=== PATIENT | female | born 1970 | race Two or more races ===

== ENCOUNTER 2018-09-04 13:46 | Inpatient (IN) | payer OTHER ==
[~2018-09-04] VITALS: Ht 165.1 cm; Wt 52.3 kg
[2018-09-04] MEDS ORDERED: SODIUM CHLORIDE 0.9% 1,000 ML IV ONE (15:30)
[2018-09-04 16:30] LABS: BASOPHILS % (AUTO) 0.6 % (0.0-2.0); EOSINOPHILS % (AUTO) 2.8 % (1.0-6.0); HEMATOCRIT 38.5 % (36-46); HEMOGLOBIN 12.5 g/dL (12.0-16.0); LYMPHOCYTES # (AUTO) 1.6 K/uL (1.0-4.8); LYMPHOCYTES % (AUTO) 23.9 % (22.0-44.0); MEAN CORPUSCULAR HEMOGLOBIN 29.7 pg (26.0-34.0); MEAN CORPUSCULAR HGB CONC 32.5 G/dL (31.0-37.0); MEAN CORPUSCULAR VOLUME 92 fL (80-100); MONOCYTES # (AUTO) 0.3 K/uL (0.1-1.0); MONOCYTES % (AUTO) 4.8 % (2.0-9.0); NEUTROPHILS # (AUTO) 4.6 K/uL (1.8-7.7); NEUTROPHILS % (AUTO) 67.9 % (40.0-70.0); PLATELET COUNT (AUTO) 268 K/uL (150-450); RED CELL DISTRIBUTION WIDTH 13.9 % (11.5-14.5)
[2018-09-04 16:46] LABS: ANION GAP 6 mmol/L (8-16); CALCIUM, TOTAL 8.8 mg/dL (8.8-10.5); CARBON DIOXIDE 27 mmol/L (22-29); CHLORIDE 105 mmol/L (98-107); CREATININE 0.77 mg/dL (0.60-1.30); GLOMERULAR FILTR. RATE CALC > 60 mL/min (>60); GLUCOSE,RANDOM 92 mg/dL (70-110); POTASSIUM 3.8 mmol/L (3.5-5.1); SODIUM SERUM 138 mmol/L (136-145); UREA NITROGEN, BLOOD 16 mg/dL (7-18)
[2018-09-04 16:52] LABS: ALANINE AMINOTRANSFERASE 40 U/L (12-78); ALBUMIN 3.1 g/dL (3.4-5.0); ALKALINE PHOSPHATASE 76 U/L (46-116); ASPARTATE AMINOTRANSFERASE 29 U/L (15-37); BILIRUBIN,TOTAL 0.4 mg/dL (0.1-1.0); TOTAL PROTEIN, SERUM 7.1 g/dL (6.4-8.2)
[2018-09-04] MEDS ORDERED: ONDANSETRON HCL 4 MG/2 ML VIAL IVP PRN (17:15)
[2018-09-04] MEDS ORDERED: 0.9% SODIUM CHLORIDE 10 ML SYRINGE IVP PRN (17:15)
[2018-09-04] MEDS ORDERED: ACETAMINOPHEN 325 MG TABLET PO PRN (17:15)
[2018-09-04] MEDS ORDERED: ONDANSETRON HCL 4 MG/2 ML VIAL IVP ONE (17:15)
[2018-09-04 18:01] LABS: AMPHET/METH SCREEN,URINE POSITIVE (NEGATIVE); BARBITURATE SCREEN, URINE NEGATIVE (NEGATIVE); BENZODIAZEPINES SCREEN,URINE NEGATIVE (NEGATIVE); CANNABINOID SCREEN,URINE NEGATIVE (NEGATIVE); COCAINE SCREEN,URINE NEGATIVE (NEGATIVE); METHADONE SCREEN, URINE NEGATIVE (NEGATIVE); OPIATE SCREEN,URINE POSITIVE (NEGATIVE)
[2018-09-04 18:05] LABS: PHENCYCLIDINE SCREEN,URINE NEGATIVE (NEGATIVE)
[2018-09-04] MEDS ORDERED: MAG HYDROX/AL HYDROX/SIMETH ES 30 ML SUSPENSION UDCUP PO PRN (18:30)
[2018-09-04] MEDS ORDERED: CYANOCOBALAMIN 1,000 MCG/ML VIAL IM ONE (18:30)
[2018-09-04] MEDS ORDERED: LOPERAMIDE HCL 2 MG CAPSULE PO PRN (18:30)
[2018-09-04] MEDS ORDERED: ChlordiazePOXIDE HCL 25 MG CAPSULE PO PRN (18:30)
[2018-09-04] MEDS ORDERED: GuaiFENesin/D-METHORPHAN [SUGAR-FREE] 200-20MG/10 ML SYRUP UDCUP PO PRN (18:30)
[2018-09-04] MEDS ORDERED: MAGNESIUM HYDROXIDE SUSPENSION 30 ML UDCUP PO PRN (18:30)
[2018-09-04] MEDS ORDERED: HydrOXYzine PAMOATE 50 MG CAPSULE PO PRN ×2 (18:30)
[2018-09-04] MEDS ORDERED: IPRATROPIUM BROMIDE 0.5 MG/2.5 ML NEB SOLUTION NEB PRN (18:30)
[2018-09-04] MEDS ORDERED: ALBUTEROL SULFATE 2.5 MG/0.5 ML NEB SOLUTION NEB PRN (18:30)
[2018-09-04] MEDS ORDERED: BISACODYL 10 MG RECTAL RECTAL SUPPOSITORY PR PRN (18:30)
[2018-09-04 19:00] VITALS: BP 126/66
[2018-09-04 19:06] VITALS: BP 126/66
[2018-09-04 19:42] VITALS: BP 128/57
[2018-09-04 20:00] VITALS: BP 128/57
[2018-09-04] MEDS: DOCUSATE SODIUM 100 MG CAPSULE PO SCH (21:00)
[2018-09-04] MEDS: SODIUM CHLORIDE 0.9% 1,000 ML IV SCH (21:32)
[2018-09-04] MEDS: CEPHALEXIN MONOHYDRATE 500 MG CAPSULE PO SCH (21:33)
[2018-09-04] MEDS: CloNIDine HCL 0.1 MG TABLET PO SCH (21:33)
[2018-09-04] MEDS: THIAMINE HCL 100 MG TABLET PO SCH (21:33)
[2018-09-04 23:00] VITALS: BP 130/88
[2018-09-04 23:20] VITALS: BP 130/88
[2018-09-04] MEDS: HEPARIN SODIUM,PORCINE 5,000 UNITS/ML VIAL SQ SCH (23:28)
[2018-09-05 04:34] VITALS: BP 132/78
[2018-09-05] MEDS: CloNIDine HCL 0.1 MG TABLET PO SCH ×4 (06:09→23:49)
[2018-09-05 06:38] LABS: BASOPHILS % (AUTO) 0.6 % (0.0-2.0); EOSINOPHILS % (AUTO) 5.6 % (1.0-6.0); HEMATOCRIT 38.1 % (36-46); HEMOGLOBIN 12.3 g/dL (12.0-16.0); LYMPHOCYTES # (AUTO) 1.6 K/uL (1.0-4.8); LYMPHOCYTES % (AUTO) 29.3 % (22.0-44.0); MEAN CORPUSCULAR HEMOGLOBIN 29.6 pg (26.0-34.0); MEAN CORPUSCULAR HGB CONC 32.3 G/dL (31.0-37.0); MEAN CORPUSCULAR VOLUME 92 fL (80-100); MONOCYTES # (AUTO) 0.3 K/uL (0.1-1.0); MONOCYTES % (AUTO) 5.6 % (2.0-9.0); NEUTROPHILS # (AUTO) 3.1 K/uL (1.8-7.7); NEUTROPHILS % (AUTO) 58.9 % (40.0-70.0); PLATELET COUNT (AUTO) 261 K/uL (150-450); RED BLOOD CELL COUNT(AUTO) 4.15 MIL/uL (4.00-5.20); RED CELL DISTRIBUTION WIDTH 13.8 % (11.5-14.5)
[2018-09-05 07:00] LABS: ANION GAP 10 mmol/L (8-16); CARBON DIOXIDE 25 mmol/L (22-29); CHLORIDE 104 mmol/L (98-107); CREATININE 0.77 mg/dL (0.60-1.30); GLUCOSE,RANDOM 94 mg/dL (70-110); POTASSIUM 3.4 mmol/L (3.5-5.1); SODIUM SERUM 139 mmol/L (136-145); UREA NITROGEN, BLOOD 13 mg/dL (7-18)
[2018-09-05] MEDS ORDERED: ChlordiazePOXIDE HCL 25 MG CAPSULE PO PRN (07:00)
[2018-09-05 07:01] LABS: ALANINE AMINOTRANSFERASE 32 U/L (12-78); ALBUMIN 2.7 g/dL (3.4-5.0); ALKALINE PHOSPHATASE 71 U/L (46-116); ASPARTATE AMINOTRANSFERASE 20 U/L (15-37); BILIRUBIN,TOTAL 0.4 mg/dL (0.1-1.0); CALCIUM, TOTAL 8.7 mg/dL (8.8-10.5); GLOMERULAR FILTR. RATE CALC > 60 mL/min (>60); TOTAL PROTEIN, SERUM 6.5 g/dL (6.4-8.2)
[2018-09-05 07:15] VITALS: BP 116/69
[2018-09-05] MEDS: RALTEGRAVIR 400 MG TABLET PO SCH ×2 (08:39→20:24)
[2018-09-05] MEDS: EMTRICITABINE/TENOFOVIR 200-300 MG TABLET PO SCH (08:39)
[2018-09-05] MEDS: THIAMINE HCL 100 MG TABLET PO SCH ×2 (08:40→20:25)
[2018-09-05] MEDS: CEPHALEXIN MONOHYDRATE 500 MG CAPSULE PO SCH ×4 (08:40→20:25)
[2018-09-05] MEDS: MULTIVITAMINS WITH MINERALS, THERAPEUTIC TABLET PO SCH (08:41)
[2018-09-05] MEDS: FOLIC ACID 1 MG TABLET PO SCH (08:41)
[2018-09-05] MEDS: ACETAMINOPHEN 325 MG TABLET PO PRN ×2 (08:41→20:28)
[2018-09-05] MEDS: ChlordiazePOXIDE HCL 25 MG CAPSULE PO SCH ×4 (08:42→20:25)
[2018-09-05] MEDS: HEPARIN SODIUM,PORCINE 5,000 UNITS/ML VIAL SQ SCH ×3 (08:42→23:47)
[2018-09-05] MEDS: DOCUSATE SODIUM 100 MG CAPSULE PO SCH ×3 (08:42→21:27)
[2018-09-05 11:20] VITALS: BP 134/76
[2018-09-05] MEDS: SODIUM CHLORIDE 0.9% 1,000 ML IV SCH (12:08)
[2018-09-05 15:10] VITALS: BP 132/87
[2018-09-05] MEDS ORDERED: POTASSIUM CHLORIDE 20 MEQ ER TABLET PO ONE (17:15)
[2018-09-05 19:57] VITALS: BP 110/63
[2018-09-05 23:19] VITALS: BP 144/89
[2018-09-06] VITALS (9 sets, daily range): BP systolic 130–185; BP diastolic 79–109
[2018-09-06] MEDS ORDERED: SODIUM CHLORIDE 0.9% 1,000 ML IV ONE (01:18)
[2018-09-06] MEDS: CloNIDine HCL 0.1 MG TABLET PO SCH ×4 (05:44→23:12)
[2018-09-06] MEDS: ONDANSETRON HCL 4 MG/2 ML VIAL IVP PRN ×2 (07:41→14:11)
[2018-09-06] MEDS: CloNIDine HCL 0.1 MG TABLET PO PRN ×2 (07:41→15:35)
[2018-09-06] MEDS: DOCUSATE SODIUM 100 MG CAPSULE PO SCH ×2 (09:00→19:37)
[2018-09-06] MEDS: THIAMINE HCL 100 MG TABLET PO SCH ×2 (09:17→19:38)
[2018-09-06] MEDS: MULTIVITAMINS WITH MINERALS, THERAPEUTIC TABLET PO SCH (09:17)
[2018-09-06] MEDS: CEPHALEXIN MONOHYDRATE 500 MG CAPSULE PO SCH ×4 (09:17→19:38)
[2018-09-06] MEDS: HEPARIN SODIUM,PORCINE 5,000 UNITS/ML VIAL SQ SCH ×3 (09:18→23:11)
[2018-09-06] MEDS: ChlordiazePOXIDE HCL 25 MG CAPSULE PO SCH ×4 (09:18→19:40)
[2018-09-06] MEDS: RALTEGRAVIR 400 MG TABLET PO SCH ×2 (09:19→19:38)
[2018-09-06] MEDS: EMTRICITABINE/TENOFOVIR 200-300 MG TABLET PO SCH (09:19)
[2018-09-06] MEDS: FOLIC ACID 1 MG TABLET PO SCH (09:19)
[2018-09-06] MEDS: SODIUM CHLORIDE 0.9% 1,000 ML IV SCH (15:33)
[2018-09-06] MEDS: DICYCLOMINE HCL 20 MG TABLET PO SCH ×2 (16:46→23:12)
[2018-09-07 05:00] VITALS: BP 184/102
[2018-09-07] MEDS: CloNIDine HCL 0.1 MG TABLET PO SCH ×2 (05:11→11:16)
[2018-09-07] MEDS: IBUPROFEN 600 MG TABLET PO PRN ×2 (05:11→20:18)
[2018-09-07] MEDS: SODIUM CHLORIDE 0.9% 1,000 ML IV SCH ×2 (05:13→14:17)
[2018-09-07] MEDS: DICYCLOMINE HCL 20 MG TABLET PO SCH ×4 (05:14→23:29)
[2018-09-07] MEDS ORDERED: ChlordiazePOXIDE HCL 10 MG CAPSULE PO PRN (07:00)
[2018-09-07 07:41] VITALS: BP 167/95
[2018-09-07] MEDS: EMTRICITABINE/TENOFOVIR 200-300 MG TABLET PO SCH (08:28)
[2018-09-07] MEDS: DOCUSATE SODIUM 100 MG CAPSULE PO SCH ×2 (08:29→20:12)
[2018-09-07] MEDS: ChlordiazePOXIDE HCL 10 MG CAPSULE PO SCH ×4 (08:29→20:12)
[2018-09-07] MEDS: MULTIVITAMINS WITH MINERALS, THERAPEUTIC TABLET PO SCH (08:29)
[2018-09-07] MEDS: HEPARIN SODIUM,PORCINE 5,000 UNITS/ML VIAL SQ SCH ×3 (08:29→23:30)
[2018-09-07] MEDS: RALTEGRAVIR 400 MG TABLET PO SCH ×2 (08:29→20:13)
[2018-09-07] MEDS: CEPHALEXIN MONOHYDRATE 500 MG CAPSULE PO SCH ×4 (08:30→20:12)
[2018-09-07] MEDS: FOLIC ACID 1 MG TABLET PO SCH (08:31)
[2018-09-07] MEDS: ESCITALOPRAM OXALATE 10 MG TABLET PO SCH (11:15)
[2018-09-07] MEDS: THIAMINE HCL 100 MG TABLET PO SCH ×2 (11:18→20:12)
[2018-09-07] MEDS ORDERED: CloNIDine HCL 0.1 MG TABLET PO PRN (11:30)
[2018-09-07 11:32] VITALS: BP 136/74
[2018-09-07 15:54] VITALS: BP 101/58
[2018-09-07 20:13] VITALS: BP 121/69
[2018-09-07 23:21] VITALS: BP 180/106
[2018-09-08] VITALS (7 sets, daily range): BP systolic 99–140; BP diastolic 64–86
[2018-09-08] MEDS: IBUPROFEN 600 MG TABLET PO PRN ×2 (06:41→16:43)
[2018-09-08] MEDS: DICYCLOMINE HCL 20 MG TABLET PO SCH ×4 (06:41→23:19)
[2018-09-08] MEDS ORDERED: ChlordiazePOXIDE HCL 10 MG CAPSULE PO PRN (07:00)
[2018-09-08] MEDS: HEPARIN SODIUM,PORCINE 5,000 UNITS/ML VIAL SQ SCH ×3 (08:22→23:19)
[2018-09-08] MEDS: ESCITALOPRAM OXALATE 10 MG TABLET PO SCH (08:22)
[2018-09-08] MEDS: DOCUSATE SODIUM 100 MG CAPSULE PO SCH ×3 (08:22→20:07)
[2018-09-08] MEDS: THIAMINE HCL 100 MG TABLET PO SCH ×2 (08:23→20:01)
[2018-09-08] MEDS: MULTIVITAMINS WITH MINERALS, THERAPEUTIC TABLET PO SCH (08:23)
[2018-09-08] MEDS: EMTRICITABINE/TENOFOVIR 200-300 MG TABLET PO SCH (08:23)
[2018-09-08] MEDS: CEPHALEXIN MONOHYDRATE 500 MG CAPSULE PO SCH ×4 (08:23→20:01)
[2018-09-08] MEDS: FOLIC ACID 1 MG TABLET PO SCH (08:23)
[2018-09-08] MEDS: RALTEGRAVIR 400 MG TABLET PO SCH ×2 (08:24→20:04)
[2018-09-08] MEDS ORDERED: CloNIDine HCL 0.2 MG TABLET PO SCH (16:00)
[2018-09-08] MEDS: ZOLPIDEM TARTRATE 5 MG TABLET PO PRN (20:01)
[2018-09-08] MEDS: DIAZEPAM 5 MG TABLET PO PRN (22:31)
[2018-09-09] VITALS (10 sets, daily range): BP systolic 105–196; BP diastolic 56–107
[2018-09-09] MEDS: IBUPROFEN 600 MG TABLET PO PRN ×3 (00:57→21:44)
[2018-09-09] MEDS: DIAZEPAM 5 MG TABLET PO PRN ×3 (06:12→23:11)
[2018-09-09] MEDS: DICYCLOMINE HCL 20 MG TABLET PO SCH ×4 (06:12→23:15)
[2018-09-09] MEDS: DOCUSATE SODIUM 100 MG CAPSULE PO SCH ×2 (09:00→19:55)
[2018-09-09] MEDS: CEPHALEXIN MONOHYDRATE 500 MG CAPSULE PO SCH ×4 (11:06→19:54)
[2018-09-09] MEDS: FOLIC ACID 1 MG TABLET PO SCH (11:06)
[2018-09-09] MEDS: THIAMINE HCL 100 MG TABLET PO SCH ×2 (11:06→19:55)
[2018-09-09] MEDS: HEPARIN SODIUM,PORCINE 5,000 UNITS/ML VIAL SQ SCH ×3 (11:07→23:12)
[2018-09-09] MEDS: EMTRICITABINE/TENOFOVIR 200-300 MG TABLET PO SCH (11:07)
[2018-09-09] MEDS: ESCITALOPRAM OXALATE 10 MG TABLET PO SCH (11:07)
[2018-09-09] MEDS: MULTIVITAMINS WITH MINERALS, THERAPEUTIC TABLET PO SCH (11:07)
[2018-09-09] MEDS: RALTEGRAVIR 400 MG TABLET PO SCH ×2 (11:08→19:56)
[2018-09-09] MEDS: ONDANSETRON HCL 4 MG/2 ML VIAL IVP PRN (11:13)
[2018-09-09 11:46] LABS: BASOPHILS % (AUTO) 0.8 % (0.0-2.0); EOSINOPHILS % (AUTO) 0.2 % (1.0-6.0); HEMATOCRIT 43.2 % (36-46); LYMPHOCYTES # (AUTO) 1.5 K/uL (1.0-4.8); LYMPHOCYTES % (AUTO) 16.7 % (22.0-44.0); MEAN CORPUSCULAR HEMOGLOBIN 29.5 pg (26.0-34.0); MEAN CORPUSCULAR HGB CONC 32.3 G/dL (31.0-37.0); MEAN CORPUSCULAR VOLUME 91 fL (80-100); MONOCYTES # (AUTO) 0.3 K/uL (0.1-1.0); MONOCYTES % (AUTO) 3.6 % (2.0-9.0); NEUTROPHILS # (AUTO) 6.9 K/uL (1.8-7.7); NEUTROPHILS % (AUTO) 78.7 % (40.0-70.0); PLATELET COUNT (AUTO) 320 K/uL (150-450); RED BLOOD CELL COUNT(AUTO) 4.74 MIL/uL (4.00-5.20); RED CELL DISTRIBUTION WIDTH 13.7 % (11.5-14.5)
[2018-09-09 12:09] LABS: ANION GAP 10 mmol/L (8-16); CALCIUM, TOTAL 9.5 mg/dL (8.8-10.5); CARBON DIOXIDE 25 mmol/L (22-29); CHLORIDE 95 mmol/L (98-107); CREATININE 0.76 mg/dL (0.60-1.30); GLOMERULAR FILTR. RATE CALC > 60 mL/min (>60); GLUCOSE,RANDOM 106 mg/dL (70-110); SODIUM SERUM 130 mmol/L (136-145); UREA NITROGEN, BLOOD 11 mg/dL (7-18)
[2018-09-09 12:14] LABS: ALANINE AMINOTRANSFERASE 50 U/L (12-78); ALBUMIN 3.6 g/dL (3.4-5.0); ALKALINE PHOSPHATASE 83 U/L (46-116); ASPARTATE AMINOTRANSFERASE 26 U/L (15-37); BILIRUBIN,TOTAL 0.5 mg/dL (0.1-1.0)
[2018-09-09] MEDS ORDERED: NIFEdipine 30 MG ER TABLET PO ONE (12:45)
[2018-09-09] MEDS: CloNIDine HCL 0.2 MG TABLET PO SCH ×2 (17:16→23:11)
[2018-09-09] MEDS: ZOLPIDEM TARTRATE 5 MG TABLET PO PRN (19:55)
[2018-09-09] MEDS ORDERED: CloNIDine HCL 0.2 MG TABLET PO SCH (21:00)
[2018-09-10 05:14] VITALS: BP 130/97
[2018-09-10] MEDS: IBUPROFEN 600 MG TABLET PO PRN ×2 (05:54→17:45)
[2018-09-10] MEDS: DICYCLOMINE HCL 20 MG TABLET PO SCH ×4 (06:00→23:50)
[2018-09-10 07:35] VITALS: BP 148/83
[2018-09-10] MEDS: RALTEGRAVIR 400 MG TABLET PO SCH ×2 (08:49→20:20)
[2018-09-10] MEDS: CEPHALEXIN MONOHYDRATE 500 MG CAPSULE PO SCH ×4 (08:49→20:20)
[2018-09-10] MEDS: FOLIC ACID 1 MG TABLET PO SCH (08:50)
[2018-09-10] MEDS: EMTRICITABINE/TENOFOVIR 200-300 MG TABLET PO SCH (08:50)
[2018-09-10] MEDS: MULTIVITAMINS WITH MINERALS, THERAPEUTIC TABLET PO SCH (08:50)
[2018-09-10] MEDS: CloNIDine HCL 0.2 MG TABLET PO SCH ×3 (08:50→23:50)
[2018-09-10] MEDS: ESCITALOPRAM OXALATE 10 MG TABLET PO SCH (08:50)
[2018-09-10] MEDS: DOCUSATE SODIUM 100 MG CAPSULE PO SCH ×2 (08:50→21:00)
[2018-09-10] MEDS: HEPARIN SODIUM,PORCINE 5,000 UNITS/ML VIAL SQ SCH ×3 (08:51→23:51)
[2018-09-10] MEDS: DIAZEPAM 5 MG TABLET PO PRN ×2 (08:51→20:20)
[2018-09-10] MEDS: THIAMINE HCL 100 MG TABLET PO SCH ×2 (08:57→20:20)
[2018-09-10] MEDS ORDERED: NIFEdipine 30 MG ER TABLET PO SCH (09:00)
[2018-09-10 11:28] VITALS: BP 128/59
[2018-09-10 16:00] VITALS: BP 103/66
[2018-09-10] MEDS: CloNIDine HCL 0.1 MG TABLET PO PRN (17:09)
[2018-09-10 19:42] VITALS: BP 110/71
[2018-09-10] MEDS: ZOLPIDEM TARTRATE 5 MG TABLET PO PRN (22:40)
[2018-09-10 23:22] VITALS: BP 119/77
[2018-09-11] VITALS (13 sets, daily range): BP systolic 102–195; BP diastolic 65–123
[2018-09-11] MEDS: DICYCLOMINE HCL 20 MG TABLET PO SCH ×3 (05:01→18:35)
[2018-09-11] MEDS: DOCUSATE SODIUM 100 MG CAPSULE PO SCH ×2 (08:28→20:35)
[2018-09-11] MEDS: MULTIVITAMINS WITH MINERALS, THERAPEUTIC TABLET PO SCH (08:28)
[2018-09-11] MEDS: HEPARIN SODIUM,PORCINE 5,000 UNITS/ML VIAL SQ SCH ×2 (08:28→16:11)
[2018-09-11] MEDS: RALTEGRAVIR 400 MG TABLET PO SCH ×2 (08:28→20:35)
[2018-09-11] MEDS: EMTRICITABINE/TENOFOVIR 200-300 MG TABLET PO SCH (08:28)
[2018-09-11] MEDS: ESCITALOPRAM OXALATE 10 MG TABLET PO SCH (08:29)
[2018-09-11] MEDS: FOLIC ACID 1 MG TABLET PO SCH (08:29)
[2018-09-11] MEDS: THIAMINE HCL 100 MG TABLET PO SCH ×2 (08:29→20:34)
[2018-09-11] MEDS: CEPHALEXIN MONOHYDRATE 500 MG CAPSULE PO SCH ×4 (08:29→20:34)
[2018-09-11] MEDS: CloNIDine HCL 0.2 MG TABLET PO SCH ×2 (08:30→16:11)
[2018-09-11] MEDS: DIAZEPAM 5 MG TABLET PO PRN (08:40)
[2018-09-11] MEDS ORDERED: MVI PO (10:43)
[2018-09-11] MEDS ORDERED: [UNRECOGNIZED DRUG - OTHER] PO (10:43)
[2018-09-11] MEDS ORDERED: CLONIDINE PO (10:43)
[2018-09-11] MEDS ORDERED: LEXAPRO PO (10:43)
[2018-09-11] MEDS ORDERED: RALT400T PO (10:43)
[2018-09-11] MEDS ORDERED: FOLATE PO (10:43)
[2018-09-11] MEDS ORDERED: TRUVT PO (10:43)
[2018-09-11] MEDS ORDERED: ONDANSETRON HCL 4 MG TABLET PO PRN (11:15)
[2018-09-11] MEDS ORDERED: ONDANSETRON HCL 4 MG/2 ML VIAL PO PRN (12:30)
[2018-09-11] MEDS: CloNIDine HCL 0.1 MG TABLET PO PRN (14:31)
[2018-09-12] MEDS: DICYCLOMINE HCL 20 MG TABLET PO SCH ×3 (00:30→12:00)
[2018-09-12] MEDS: CloNIDine HCL 0.2 MG TABLET PO SCH ×2 (00:30→08:45)
[2018-09-12] MEDS: HEPARIN SODIUM,PORCINE 5,000 UNITS/ML VIAL SQ SCH ×2 (00:30→08:46)
[2018-09-12 05:29] VITALS: BP 88/72
[2018-09-12 05:38] VITALS: BP 99/77
[2018-09-12 07:13] LABS: BASOPHILS % (AUTO) 0.9 % (0.0-2.0); EOSINOPHILS % (AUTO) 3.8 % (1.0-6.0); HEMATOCRIT 40.1 % (36-46); LYMPHOCYTES # (AUTO) 1.9 K/uL (1.0-4.8); LYMPHOCYTES % (AUTO) 41.2 % (22.0-44.0); MEAN CORPUSCULAR HEMOGLOBIN 29.8 pg (26.0-34.0); MEAN CORPUSCULAR HGB CONC 32.4 G/dL (31.0-37.0); MEAN CORPUSCULAR VOLUME 92 fL (80-100); MONOCYTES # (AUTO) 0.3 K/uL (0.1-1.0); MONOCYTES % (AUTO) 6.8 % (2.0-9.0); NEUTROPHILS # (AUTO) 2.2 K/uL (1.8-7.7); NEUTROPHILS % (AUTO) 47.3 % (40.0-70.0); PLATELET COUNT (AUTO) 286 K/uL (150-450); RED BLOOD CELL COUNT(AUTO) 4.37 MIL/uL (4.00-5.20); RED CELL DISTRIBUTION WIDTH 14.1 % (11.5-14.5)
[2018-09-12 07:45] LABS: ALANINE AMINOTRANSFERASE 41 U/L (12-78); ALBUMIN 3.1 g/dL (3.4-5.0); ALKALINE PHOSPHATASE 77 U/L (46-116); ANION GAP 7 mmol/L (8-16); ASPARTATE AMINOTRANSFERASE 20 U/L (15-37); BILIRUBIN,TOTAL 0.3 mg/dL (0.1-1.0); CALCIUM, TOTAL 9.7 mg/dL (8.8-10.5); CARBON DIOXIDE 30 mmol/L (22-29); CHLORIDE 99 mmol/L (98-107); CREATININE 0.91 mg/dL (0.60-1.30); GLOMERULAR FILTR. RATE CALC > 60 mL/min (>60); GLUCOSE,RANDOM 92 mg/dL (70-110); SODIUM SERUM 136 mmol/L (136-145); TOTAL PROTEIN, SERUM 7.2 g/dL (6.4-8.2); UREA NITROGEN, BLOOD 16 mg/dL (7-18)
[2018-09-12 07:56] VITALS: BP 131/63
[2018-09-12] MEDS: THIAMINE HCL 100 MG TABLET PO SCH (08:45)
[2018-09-12] MEDS: FOLIC ACID 1 MG TABLET PO SCH (08:45)
[2018-09-12] MEDS: RALTEGRAVIR 400 MG TABLET PO SCH (08:45)
[2018-09-12] MEDS: MULTIVITAMINS WITH MINERALS, THERAPEUTIC TABLET PO SCH (08:45)
[2018-09-12] MEDS: ESCITALOPRAM OXALATE 10 MG TABLET PO SCH (08:45)
[2018-09-12] MEDS: EMTRICITABINE/TENOFOVIR 200-300 MG TABLET PO SCH (08:45)
[2018-09-12] MEDS: CEPHALEXIN MONOHYDRATE 500 MG CAPSULE PO SCH (08:45)
[2018-09-12] MEDS: DOCUSATE SODIUM 100 MG CAPSULE PO SCH (08:46)
== END 2018-09-12 11:40 | DRG 897 ==
LOC: EMS 13:46 → 4E 17:12
PROVIDERS: ADMIT Hospitalist; ATTEND Hospitalist
DX: F11.23 Opioid dependence with withdrawal (principal); E44.0 Moderate protein-calorie malnutrition; F33.2 Major depressive disorder, recurrent severe without psychotic features; E87.6 Hypokalemia; B19.20 Unspecified viral hepatitis C without hepatic coma; I10 Essential (primary) hypertension; F15.10 Other stimulant abuse, uncomplicated; F41.9 Anxiety disorder, unspecified; F17.210 Nicotine dependence, cigarettes, uncomplicated; R10.9 Unspecified abdominal pain; F10.10 Alcohol abuse, uncomplicated; Z68.1 Body mass index [BMI] 19.9 or less, adult; Z91.410 Personal history of adult physical and sexual abuse
CPT/HCPCS: 72170; 80074; 84132; 87081; 96361; 96372; 96374; G0378; G0480; J1644; J2405; J3420; J7030; Q0162